=== PATIENT | female | born 1975 | race Caucasian/White ===

== ENCOUNTER 2019-02-27 13:10 | Outpatient (CLI) | payer MEDICAID | END 2019-02-27 22:51 | disposition home or self-care (01) | LOC: MRD 13:10 | PROVIDERS: ATTEND Obstetrics & Gynecology | DX: O24.410 Gestational diabetes mellitus in pregnancy, diet controlled (principal); O09.513 Supervision of elderly primigravida, third trimester; Z3A.36 36 weeks gestation of pregnancy | CPT/HCPCS: 76805; 76819; Q0092 ==

== ENCOUNTER 2019-03-10 14:28 | Inpatient (IN) | payer MEDICAID ==
[~2019-03-10] VITALS: Ht 147.3 cm; Wt 71.7 kg
[2019-03-10] MEDS ORDERED: METHYLERGONOVINE 0.2 MG/ML AMP IM PRN (15:00)
[2019-03-10] MEDS ORDERED: CARBOPROST 250 MCG/ML AMP IM PRN (15:00)
[2019-03-10] MEDS ORDERED: PROMETHAZINE 25 MG/ML VIAL IVP PRN (15:00)
[2019-03-10] MEDS ORDERED: NALBUPHINE 10 MG/ML AMP IVP PRN (15:00)
[2019-03-10] MEDS ORDERED: MISOPROSTOL 200 MCG TAB VG SCH ×2 (15:30→18:00)
[2019-03-10 16:20] VITALS: BP 102/57
[2019-03-10] MEDS ORDERED: OXYTOCIN 20 UNITS/LR PREMIX 1,000 ML IV ONE ×2 (16:58→21:29)
[2019-03-10] MEDS ORDERED: OXYTOCIN 20 UNITS in LACTATED RINGERS 1,000 ML IV SCH (17:00)
[2019-03-10 17:03] LABS: BASOPHILS % (AUTO) 0.4 % (0.0-2.0); EOSINOPHILS # (AUTO) 0.1 K/uL (0-0.4); EOSINOPHILS % (AUTO) 0.9 % (0.0-4.0); HEMATOCRIT 35.5 % (36-48); HEMOGLOBIN 11.9 g/dL (12.0-16.0); LYMPHOCYTES # (AUTO) 0.9 K/uL (2.5-16.5); LYMPHOCYTES % (AUTO) 13.1 % (20.5-51.1); MEAN CORPUSCULAR HEMOGLOBIN 29 pg (27-31); MEAN CORPUSCULAR HGB CONC 34 g/dL (33-37); MEAN CORPUSCULAR VOLUME 87.3 fL (80-94); MONOCYTES # (AUTO) 0.5 K/uL (0.8-1.0); MONOCYTES % (AUTO) 7.2 % (1.7-9.3); NEUTROPHILS # (AUTO) 5.7 K/uL (1.8-7.7); NEUTROPHILS % (AUTO) 78.4 % (42.2-75.2); PLATELET COUNT (AUTO) 170 K/uL (140-450); RED BLOOD CELL COUNT(AUTO) 4.07 MIL/uL (4.20-5.40); RED CELL DISTRIBUTION WIDTH 14.4 % (11.6-13.7); WHITE BLOOD COUNT (AUTO) 7.2 K/uL (4.8-10.8)
[2019-03-10 17:11] LABS: APPEARANCE,URINE CLEAR (CLEAR); BILIRUBIN,URINE NEGATIVE (NEGATIVE); BLOOD, URINE NEGATIVE (NEGATIVE); COLOR,URINE YELLOW (YELLOW); LEUKOCYTE ESTERASE ,URINE TRACE (NEGATIVE); NITRITE, URINE NEGATIVE (NEGATIVE); UGLUCOSE NEGATIVE (NEGATIVE)
[2019-03-10 17:17] LABS: ANION GAP 15.5 (8-16); CARBON DIOXIDE 19.9 mmol/L (21-32); CREATININE 0.5 mg/dL (0.6-1.3); POTASSIUM 3.4 mmol/L (3.5-5.1)
[2019-03-10 17:25] LABS: ALBUMIN 2.3 g/dL (3.4-5.0); TOTAL BILIRUBIN 0.3 mg/dL (0.0-1.0)
[2019-03-10] MEDS: LACTATED RINGERS 1,000 ML IV SCH ×2 (18:38→20:44)
[2019-03-10] MEDS ORDERED: PROMETHAZINE 25 MG/ML VIAL ONE (20:16)
[2019-03-10] MEDS ORDERED: NALBUPHINE 10 MG/ML AMP ONE (20:16)
[2019-03-10] MEDS ORDERED: BUPIVACAINE 0.125%/NS PREMIX 250 ML ONE (21:34)
[2019-03-10] MEDS ORDERED: ROPIVACAINE 0.2%/NS PREMIX 100 ML EPI SCH (22:00)
[2019-03-10] MEDS ORDERED: BUPIVACAINE 0.125%/NS PREMIX 250 ML EPI SCH (22:30)
[2019-03-11] MEDS ORDERED: TEMAZEPAM 15 MG CAP PO PRN (01:15)
[2019-03-11] MEDS ORDERED: METHYLERGONOVINE 0.2 MG/ML AMP IM PRN (01:15)
[2019-03-11] MEDS ORDERED: METHYLERGONOVINE 0.2 MG TAB PO PRN (01:15)
[2019-03-11] MEDS ORDERED: oxyCODONE/APAP 5/325 MG 1 TAB TAB PO PRN (01:15)
[2019-03-11] MEDS ORDERED: BENZOCAINE/MENTHOL 20%-0.5% 60 GM CAN TP PRN (01:15)
[2019-03-11] MEDS ORDERED: OXYTOCIN 10 UNITS/ML VIAL IM PRN (01:15)
[2019-03-11] MEDS ORDERED: IBUPROFEN 600 MG TAB PO PRN (01:20)
--- NOTE | 2019-03-11 08:11 | NUR ---
PATIENT HAS BEEN SCREENED AND CATEGORIZED LOW NUTRITION RISK. PATIENT WILL BE SEEN WITHIN 7 DAYS OF ADMISSION. 03/17/[address]
[2019-03-11 08:45] LABS: HEMATOCRIT 32.1 % (36-48); HEMOGLOBIN 10.8 g/dL (12.0-16.0)
[2019-03-11] MEDS ORDERED: DOCUSATE SOD/SENNA 50/8.6 MG 1 TAB PO SCH (21:00)
[2019-03-12] MEDS: LACTATED RINGERS 1,000 ML IV SCH ×2 (00:04→07:00)
[2019-03-12] MEDS ORDERED: fentaNYL 0.05 MG/ML VIAL ONE (09:24)
[2019-03-12] MEDS ORDERED: ONDANSETRON 4 MG/2 ML VIAL IVP PRN (09:35)
[2019-03-12] MEDS ORDERED: BLOOD GLUCOSE MONITORING 1 DEV DEV FS SCH (09:35)
[2019-03-12] MEDS ORDERED: BUPIVACAINE-MPF/EPI 0.25% 30 ML VIAL INJ ONE (09:37)
[2019-03-12] MEDS ORDERED: ceFAZolin 1,000 MG VIAL ONE (09:39)
[2019-03-12] MEDS ORDERED: KETAMINE 500 MG/5 ML VIAL ONE (09:54)
[2019-03-12] MEDS ORDERED: LACTATED RINGERS 1,000 ML IV ONE (12:10)
[2019-03-12] MEDS: oxyCODONE/APAP 5/325 MG 1 TAB TAB PO PRN (19:54)
[2019-03-13] MEDS: oxyCODONE/APAP 5/325 MG 1 TAB TAB PO PRN ×2 (02:03→08:59)
== END 2019-03-13 15:00 | disposition home or self-care (01) | DRG 541 ==
LOC: MLD 14:28 → MFCC 03-11 03:25
PROVIDERS: ADMIT Obstetrics & Gynecology; ATTEND Obstetrics & Gynecology
PROC: 10E0XZZ Delivery of Products of Conception, External Approach (ICD-10-PCS; principal; 2019-03-11)
PROC: 3E033VJ Introduction of Other Hormone into Peripheral Vein, Percutaneous Approach (ICD-10-PCS; 2019-03-11)
PROC: 0HQ9XZZ Repair Perineum Skin, External Approach (ICD-10-PCS; 2019-03-11)
PROC: 00HU33Z Insertion of Infusion Device into Spinal Canal, Percutaneous Approach (ICD-10-PCS; 2019-03-11)
PROC: 3E0R3BZ Introduction of Anesthetic Agent into Spinal Canal, Percutaneous Approach (ICD-10-PCS; 2019-03-11)
PROC: 0UT70ZZ Resection of Bilateral Fallopian Tubes, Open Approach (ICD-10-PCS; 2019-03-12)
PROC: 3E0234Z Introduction of Serum, Toxoid and Vaccine into Muscle, Percutaneous Approach (ICD-10-PCS; 2019-03-13)
DX: O41.03X0 Oligohydramnios, third trimester, not applicable or unspecified (principal); O24.429 Gestational diabetes mellitus in childbirth, unspecified control; O70.0 First degree perineal laceration during delivery; Z37.0 Single live birth; Z3A.40 40 weeks gestation of pregnancy; Z30.2 Encounter for sterilization; Z23 Encounter for immunization
CPT/HCPCS: 36415; 51702; 59409; 80053; 81003; 82948; 85018; 85025; 86592; 86886; 86900; 86901; 88302; 90715; J0690; J2300; J2550; J2590; J3010; J3490; J7030; J7120

== ENCOUNTER 2019-03-15 18:01 | Emergency (ER) | payer MEDICAID ==
[~2019-03-15] VITALS: Ht 147.3 cm; Wt 68.0 kg
[2019-03-15 18:16] VITALS: BP 126/81
--- NOTE | 2019-03-15 18:46 | NUR ---
PT TO ED WITH C/O LOWER ABD BRUISING S/P HYSTERECTOMY OPERATION X 3 DAYS. PT DENIES N/V. MILD BRUSING NOTED TO LOWER ABD, NO DRIANGED NOTED FROM SURGICAL SITE. PT PLACED INTO BED, PENDING MD MONTES.
--- NOTE | 2019-03-15 19:16 | NUR ---
RECEIVED REPORT FROM KERMIT MORGAN. TRANSFER OF CARE AT THIS TIME.
--- NOTE | 2019-03-15 19:23 | NUR ---
PT RESTING COMFORTABLY IN BED WITH VSS. BREATHING EVEN, UNLABORED. SISTER AT BEDSIDE.
[2019-03-15 21:15] LABS: BASOPHILS % (AUTO) 0.2 % (0.0-2.0); EOSINOPHILS # (AUTO) 0.2 K/uL (0-0.4); EOSINOPHILS % (AUTO) 3.4 % (0.0-4.0); HEMATOCRIT 32.6 % (36-48); LYMPHOCYTES # (AUTO) 0.9 K/uL (2.5-16.5); LYMPHOCYTES % (AUTO) 18.5 % (20.5-51.1); MEAN CORPUSCULAR HEMOGLOBIN 30 pg (27-31); MEAN CORPUSCULAR HGB CONC 34 g/dL (33-37); MEAN CORPUSCULAR VOLUME 87.8 fL (80-94); MONOCYTES # (AUTO) 0.4 K/uL (0.8-1.0); MONOCYTES % (AUTO) 7.4 % (1.7-9.3); NEUTROPHILS # (AUTO) 3.4 K/uL (1.8-7.7); NEUTROPHILS % (AUTO) 70.5 % (42.2-75.2); PLATELET COUNT (AUTO) 227 K/uL (140-450); RED BLOOD CELL COUNT(AUTO) 3.72 MIL/uL (4.20-5.40); RED CELL DISTRIBUTION WIDTH 14.4 % (11.6-13.7); WHITE BLOOD COUNT (AUTO) 4.9 K/uL (4.8-10.8)
[2019-03-15 21:16] LABS: APPEARANCE,URINE CLEAR (CLEAR); BILIRUBIN,URINE NEGATIVE (NEGATIVE); BLOOD, URINE 3+ (NEGATIVE); COLOR,URINE YELLOW (YELLOW); LEUKOCYTE ESTERASE ,URINE NEGATIVE (NEGATIVE); NITRITE, URINE NEGATIVE (NEGATIVE); PH,URINE 7.5 (5.0-9.0); UGLUCOSE NEGATIVE (NEGATIVE)
[2019-03-15 21:25] LABS: RBC,URINE 20-50 /HPF (0-5); WBC,URINE 0-5 /HPF (0-5)
[2019-03-15 21:33] LABS: ANION GAP 15.6 (8-16); CARBON DIOXIDE 21.1 mmol/L (21-32); CREATININE 0.5 mg/dL (0.6-1.3); POTASSIUM 3.7 mmol/L (3.5-5.1)
[2019-03-15 21:35] LABS: ALBUMIN 2.2 g/dL (3.4-5.0); TOTAL BILIRUBIN 0.3 mg/dL (0.0-1.0)
--- NOTE | 2019-03-15 22:22 | NUR ---
PT RETURN FROM RAD
--- NOTE | 2019-03-16 00:46 | NUR ---
IV removed, catheter intact and site benign. Applied folded 4x4 gauze and tape to stop bleeding.
[2019-03-16 00:47] VITALS: BP 152/74
--- NOTE | 2019-03-16 00:47 | NUR ---
Patient discharged with v/s stable. Written and verbal after care instructions given and explained. Patient verbalized understanding. Ambulatory with steady gait. All questions addressed prior to discharge. Advised to follow up with PMD.
== END 2019-03-16 00:47 | disposition home or self-care (01) ==
LOC: MED 18:01
DX: G89.18 Other acute postprocedural pain (principal); R10.30 Lower abdominal pain, unspecified; Z90.710 Acquired absence of both cervix and uterus
CPT/HCPCS: 36415; 74177; 80053; 81001; 81025; 83605; 83690; 85025; 85651; 86140; 99284; Q9967